=== PATIENT | male | born 1945 | race Caucasian/White ===

== ENCOUNTER 2017-03-09 13:12 | Day surgery (SDC) | payer MEDICARE ==
[2017-03-09 13:32] VITALS: BP 158/85; PULSE 72; RESP 20; TEMP 98.7; O2SAT 97
--- NOTE | 2017-03-10 14:00 | RADRPT ---
EXAM DATE/TIME: 03/09/2017 13:34 [place] COMPARISON : No previous studies available for comparison. INDICATIONS : EVALUATION OF MESANTERIC OBSTRUCTION OBJECTIVE: Temperature: 98.7 Heart Rate: 73 Blood Pressure: 158/85 Respiratory: 16 Oximetry: 98 PNEUMONIA VACCINE: HISTORY OF PRESENT ILLNESS: ? PAST MEDICAL HISTORY : 1. Cardiovascular disease.BILATERAL VEINOUS INSUFFIENCY 2. Hypertension.UNINTENTIONAL WIGH LOSS 3. Myocardial infarction.2011 AND 2014 STENTS X 3 4. Hypercholesterolemia. 5. ESOINPHILIC ENTERITIS 6. LEFT LUNG AND LIVER NODULES 7. TIA 8. SQUAMOUS CELL CA PAST SURGICAL HISTORY : 1. [id number] SOCIAL HISTORY : ALLERGIES: 1. NKDA 2. WALNUTS 1. [id number] mg q.d. 2. CRESTOR 5 mg q.h.s. AMLODIPINE 2.5 mg b.i.d. ISORBIDE 30 mg q.d. ENTOCORT (TOPICAL) CLONAZEPAM 0.125 mg prn PHYSICAL EXAMINATION: The patient is a healthy 71-year-old thin white male in no acute distress. IMAGING STUDIES: The patient's CT angiogram from [facility] was reviewed. There is no hemodynamically significan t stenosis of the celiac, SMA or AMARA. ASSESSMENT: The patient's celiac, SMA and AMARA are all widely patent. PLAN: The patient will followup with Dr. Silverman of the gastroenterology service. TIME SPENT: 30 minutes. Nito Sanford MD on March 10, 2017 at 13:56 Board Certified Radiologist. This report was verified electronically.
== END 2017-03-09 15:30 | disposition home or self-care (01) ==
LOC: HROP 13:12 → HRIP 13:16 → HROP 15:30
PROVIDERS: ATTEND Physician Assistant Medical
DX: I77.4 Celiac artery compression syndrome (principal); I25.10 Atherosclerotic heart disease of native coronary artery without angina pectoris; I10 Essential (primary) hypertension; I25.2 Old myocardial infarction; E78.00 Pure hypercholesterolemia, unspecified; Z86.73 Personal history of transient ischemic attack (TIA), and cerebral infarction without residual deficits
CPT/HCPCS: 99213; G0463